=== PATIENT | female | born 1990 ===

== ENCOUNTER 2017-02-04 21:41 | Emergency (ER) | payer OTHER ==
[2017-02-04 21:42] VITALS: BMI 29.6
[2017-02-04 22:06] VITALS: TEMP 98.2
[2017-02-04] MEDS ORDERED: DiphenhydrAMINE 50 mg/ml Inj IVP STA (22:41)
[2017-02-04] MEDS ORDERED: Sodium Chloride 0.9% 1,000 ML IV ONE (22:42)
[2017-02-04] MEDS ORDERED: Sodium Chloride 0.9% 1,000 ML ONE (23:20)
[2017-02-04] MEDS ORDERED: DiphenhydrAMINE 50 mg/ml Inj ONE (23:20)
--- NOTE | 2017-02-05 00:12 | C.PDOC ---
History Of Present Illness 26 year old female presents the ER with a complaint of frequent headaches for 1 month associated with nausea, vomiting, and occasional blurry vision. Patient has been on fioricet and vistaril for "2 years". Patient states headaches are new, did not happen prior to 1 month ago. She denies fever, dizziness, facial droop, slurred speech, extremity weakness, sensory changes, slurred speech. Time Seen by Provider: 02/04/17 22:34 Chief Complaint (Nursing): Headache History Per: Patient History/Exam Limitations: no limitations Onset/Duration Of Symptoms: Days (1 month) Current Symptoms Are (Timing): Still Present Severity: Mild Associated Symptoms: Blurred Vision, Nausea, Vomiting. denies: Extremity Weakness Past Medical History Reviewed: Historical Data, Nursing Documentation, Vital Signs Vital Signs: Last Vital Signs Temp 98.2 F 02/05/17 00:44 Pulse 80 02/05/17 00:44 Resp 20 02/05/17 00:44 BP 122/80 02/05/17 00:44 Pulse Ox 98 02/05/17 00:44 - Medical History PMH: Bipolar Disorder, Depression - [facility] Procedures EXTRACTION OF POC, LOW CERVICAL, OPEN APPROACH (12/11/15) INTRODUCTION OF SERUM/TOX/VACCINE INTO MUSCLE, PERC APPROACH (12/11/15) Family History: States: Diabetes - Social History Hx Tobacco Use: No Hx Alcohol Use: No Hx Substance Use: No - Immunization History Hx Tetanus Toxoid Vaccination: Yes Hx Influenza Vaccination: Yes Hx Pneumococcal Vaccination: No Review Of Systems Except As Marked, All Systems Reviewed And Found Negative. Constitutional: Negative for: Fever, Chills ENT: Positive for: Other (Blurry vision) Cardiovascular: Negative for: Chest Pain, Palpitations Respiratory: Negative for: Cough, Shortness of Breath Gastrointestinal: Positive for: Nausea, Vomiting. Negative for: Abdominal Pain , Diarrhea Genitourinary: Negative for: Dysuria, Hematuria Neurological: Positive for: Headache. Negative for: Weakness, Numbness, Change in Speech, Altered Mental Status, Dizziness Physical Exam - Physical Exam Appears: Non-toxic, Other (in mild pain) Skin: Normal Color, Warm, Dry Head: Atraumatic, Normacephalic Eye(s): bilateral: Normal Inspection, PERRL, EOMI Oral Mucosa: Moist Neck: Normal, Normal ROM Chest: Symmetrical Cardiovascular: Rhythm Regular Respiratory: Normal Breath Sounds, No Rales, No Rhonchi, No Wheezing Gastrointestinal/Abdominal: Normal Exam, Bowel Sounds, Soft, No Tenderness Neurological/Psych: Oriented x3, Normal Speech, Normal Cognition, Normal Cranial Nerves, No Cerebellar Signs, Normal Motor, Normal Sensation, Normal Reflexes Gait: Steady ED Course And Treatment O2 Sat by Pulse Oximetry: 97 (Room air) Pulse Ox Interpretation: Normal Progress Note: CT head and [facility] POC ordered and reviewed. Patient given IV NS bolus, IV reglan, IV Benadryl. Reevaluation Time: 00:15 Reassessment Condition: Improved (Patient reassessed, is resting comfortably, has no current headache, nausea/dizziness, visual changes. Patient's CT head (- ) for acute findings. She was given Rxs for Fiorecet and Zofran ODT, and instructed to follow up with neurology within 1 week. She understands she should return to ED if symptoms worsen.) Disposition Counseled Patient/Family Regarding: Studies Performed, Diagnosis, Need For Followup, Rx Given - Disposition Referrals: Dirk Covarrubias MD [Staff Provider] - Disposition: HOME/ ROUTINE Disposition Time: 00:15 Condition: STABLE Additional Instructions: SEGUIMIENTO CON NEURLOGO DENTRO DE 1 SEMANA SI LOS SNTOMAS PERSISTAN USE LOS MEDICAMENTOS QUE RENETTA NECESARIOS DEVUELVA A LA SELAM DE EMERGENCIA SI LOS SNTOMAS SE EMPEORARAN Prescriptions: Acetaminophen/Butalbital/Caf [Fioricet] 1 tab PO TID PRN #20 tab PRN Reason: Headache Ondansetron [Zofran Odt] 4 mg PO Q8 PRN #10 odt PRN Reason: Nausea/Vomiting Instructions: Acute Headache (ED) Print Language: LAO - POA Present On Arrival: None - Clinical Impression Clinical Impression: Headache, Nausea - Scribe Statement The provider has reviewed the documentation as recorded by the Scribliseth Ruffin All medical record entries made by the Scribe were at my direction and personally dictated by me. I have reviewed the chart and agree that the record accurately reflects my personal performance of the history, physical exam, medical decision making, and the department course for this patient. I have also personally directed, reviewed, and agree with the discharge instructions and disposition.
[2017-02-05 00:45] VITALS: BP 122/80; PULSE 80; RESP 20
--- NOTE | 2017-02-05 08:35 | CT ---
PROCEDURE: CT HEAD WITHOUT CONTRAST. HISTORY: NEW ONSET HEADACHES, NAUSEA/VOMITING X 1 MONTH COMPARISON: 06/30/2014 TECHNIQUE: Axial computed tomography images were obtained through the head/brain without intravenous contrast. Radiation dose: Total exam DLP = 819 mGy-cm. This CT exam was performed using one or more of the following dose reduction techniques: Automated exposure control, adjustment of the mA and/or kV according to patient size, and/or use of iterative reconstruction technique. FINDINGS: HEMORRHAGE: No intracranial hemorrhage. BRAIN: No mass effect or edema. No atrophy or chronic microvascular ischemic changes. VENTRICLES: Unremarkable. No hydrocephalus. CALVARIUM: Unremarkable. PARANASAL SINUSES: Unremarkable as visualized. No significant inflammatory changes. MASTOID AIR CELLS: Unremarkable as visualized. No inflammatory changes. OTHER FINDINGS: None. IMPRESSION: No acute intracranial abnormality. If focal neurologic deficit persists, consider MRI. These findings were preliminarily reported at 12:04 a.m. on 02/05/[address] Ezequiel Velazquez from [facility].
[2017-02-13 16:33] VITALS: O2SAT 97
== END 2017-02-05 00:43 | disposition home or self-care (01) ==
LOC: C.ER 21:41
DX: R51 Headache (principal); R11.0 Nausea
CPT/HCPCS: 70450; 96361; 96374; 96375; 99284; J1200; J2765; J7040

== ENCOUNTER 2018-07-27 18:02 | Emergency (ER) | payer MEDICAID ==
[2018-07-27 18:21] VITALS: BMI 24.1
[2018-07-27 18:24] VITALS: BP 111/77; PULSE 74; RESP 18; TEMP 99.2; O2SAT 100
[2018-07-27] MEDS ORDERED: Sodium Chloride 0.9% 1,000 ML IV STA (19:20)
[2018-07-27 20:00] LABS: BASO % 0.3 % (0.0-2.0); EOS % 0.2 % (0.0-4.0); LYMPH # 2.5 K/uL (1.0-4.3); LYMPH % 23.7 % (20.0-40.0); MEAN CELL VOLUME 77.9 fL (81.0-99.0); MEAN CORPUSCULAR HGB CONC 32.2 g/dL (33.0-37.0); MEAN PLATELET VOLUME 8.1 fL (7.2-11.7); MONO # 0.9 K/uL (0.0-0.8); MONO % 8.2 % (0.0-10.0); NEUT # 7.1 K/uL (1.8-7.0); NEUT % 67.6 % (50.0-75.0); RBC 4.77 Mil/uL (3.80-5.20); RED CELL DISTRIBUTION WIDTH 17.6 % (11.5-14.5); WHITE BLOOD COUNT 10.5 K/uL (4.8-10.8)
[2018-07-27] MEDS ORDERED: Sodium Chloride 0.9% 1,000 ML ONE (20:00)
--- NOTE | 2018-07-27 20:06 | C.PDOC ---
History Of Present Illness 27 year old female presents to the ED complaining of generalized body aches, subjective fever, chills, and midsternal chest pain x 10 days. She denies any cough, SOB, abdominal pain, n/v/d, or urinary symptoms. Patient reports she fe els "hot" and chest wall is tender to palpation. Denies any recent travels or sick contacts. Time Seen by Provider: 07/27/18 18:53 Chief Complaint (Nursing): Flu-like Symptoms History Per: Patient History/Exam Limitations: no limitations Onset/Duration Of Symptoms: Days Current Symptoms Are (Timing): Still Present Location Of Pain: Diffuse Myalgias Associated Symptoms: Fever, Chills, Myalgias. denies: Cough, Vomiting, Diarrhea Past Medical History Reviewed: Historical Data, Nursing Documentation, Vital Signs Vital Signs: Last Vital Signs Temp 99.2 F 07/27/18 18:21 Pulse 74 07/27/18 18:21 Resp 18 07/27/18 18:21 BP 111/77 07/27/18 18:21 Pulse Ox 100 07/27/18 18:21 - Medical History PMH: Bipolar Disorder, Depression Denies: Diabetes, Hepatitis, HIV, HTN, Kidney Stones, Chronic Kidney Disease, Seizures, Sexually Transmitted Disease Other Surgeries: hx of surgeries - [facility] Procedures EXTRACTION OF POC, LOW CERVICAL, OPEN APPROACH (12/11/15) INTRODUCTION OF SERUM/TOX/VACCINE INTO MUSCLE, PERC APPROACH (12/11/15) Family History: States: Diabetes - Social History Hx Tobacco Use: No Hx Alcohol Use: No Hx Substance Use: No - Immunization History Hx Tetanus Toxoid Vaccination: Yes Hx Influenza Vaccination: Yes Hx Pneumococcal Vaccination: No Review Of Systems Except As Marked, All Systems Reviewed And Found Negative. Constitutional: Positive for: Fever, Chills, Other (myalgias) Cardiovascular: Positive for: Chest Pain Respiratory: Negative for: Cough, Shortness of Breath Gastrointestinal: Negative for: Nausea, Vomiting, Diarrhea Genitourinary: Negative for: Dysuria, Hematuria Physical Exam - Physical Exam Appears: Non-toxic Skin: Warm, Dry, No Rash Head: Normacephalic Eye(s): bilateral: Normal Inspection Ear(s): Bilateral: Normal Nose: Normal Oral Mucosa: Moist Throat: Normal Neck: Normal ROM Chest: Symmetrical, Tenderness (anterior chest), No Other (rash, erythema) Cardiovascular: Rhythm Regular Respiratory: Normal Breath Sounds, No Rales, No Rhonchi, No Wheezing Gastrointestinal/Abdominal: Soft, No Tenderness Extremity: Normal ROM Neurological/Psych: Oriented x3, Normal Speech Gait: Steady ED Course And Treatment - Laboratory Results Result Diagrams: 07/27/18 19:54 07/27/18 19:54 ECG: Interpreted By Me, Viewed By Me ECG Rhythm: Sinus Rhythm ECG Interpretation: No Acute Changes Rate From EC O2 Sat by Pulse Oximetry: 100 (RA) Pulse Ox Interpretation: Normal - Radiology CXR: Interpreted by Me CXR Interpretation: Yes: No Acute Disease Progress Note: CXR ordered. Patient treated with Toradol and given IV fluids. Urine and blood collected and sent to the lab for analysis. Urinalysis shows blood, but patient sts she has her menstrual period now. Blood work without significant abnormalities. Patient was given copies of her labs and she was instructed to f/u with her PMD within 1-2 days. Disposition - Disposition Referrals: Shaik Orozco MD [Staff Provider] - Disposition: HOME/ ROUTINE Disposition Time: 21:41 Condition: STABLE Additional Instructions: Follow up with PMD within 1-2 days. Return to ED if feel worse. Prescriptions: Ibuprofen [Motrin Tab] 600 mg PO Q8 #30 tab Instructions: Muscle and Bone Pain (DC) Forms: [facility] (Cuban), Work Excuse Print Language: ROMANIAN - Clinical Impression Clinical Impression: Myalgia - PA / EMERGENCY DEPARTMENT TECHNICIAN / Resident Statement MD/DO has reviewed & agrees with the documentation as recorded. - Scribe Statement The provider has reviewed the documentation as recorded by the Scribe Cristine Cheng All medical record entries made by the Scribe were at my direction and personally dictated by me. I have reviewed the chart and agree that the record accurately reflects my personal performance of the history, physical exam, medical decision making, and the department course for this patient. I have also personally directed, reviewed, and agree with the discharge instructions and disposition.
[2018-07-27 20:09] LABS: SQUAMOUS EPITHIAL 3 /hpf (0-5); URINE BACTERIA OCC (<OCC); URINE BILIRUBIN NEGATIVE (NEGATIVE); URINE BLOOD 3+ (NEGATIVE); URINE CLARITY Hazy (Clear); URINE COLOR Amber (YELLOW); URINE GLUCOSE (UA) NORMAL (Normal); URINE LEUKOCYTE ESTERASE TRACE Leu/uL (Negative); URINE PROTEIN 2+ mg/dL (NEGATIVE)
[2018-07-27 20:15] LABS: ALB/GLOB RATIO 1.6 (1.0-2.1); ALBUMIN 4.6 g/dL (3.5-5.0); ALT/SGPT 18 U/L (9-52); AST/SGOT 21 U/L (14-36); BLOOD UREA NITROGEN 5 mg/dL (7-17); CALCIUM 9.2 mg/dl (8.6-10.4); GFR NON-AFRICAN AMERICAN > 60
--- NOTE | 2018-07-28 09:13 | RAD ---
Date of service: 07/27/2018 HISTORY: fever, chest discomfort COMPARISON: No prior. TECHNIQUE: Chest PA and lateral FINDINGS: LUNGS: No active pulmonary disease. PLEURA: No significant pleural effusion identified. No pneumothorax apparent. CARDIOVASCULAR: Normal. OSSEOUS STRUCTURES: Limited dextroscoliotic deformity of the thoracolumbar spine (C-shaped). VISUALIZED UPPER ABDOMEN: Normal. OTHER FINDINGS: None. IMPRESSION: No acute cardiopulmonary disease appreciated.
--- NOTE | 2018-07-29 12:34 | CARD ---
APPROVED REPORT Date of service: 07/27/2018 EKG Measurement Heart [id number] <Conclusion> Normal sinus rhythm Normal ECG
== END 2018-07-27 22:04 | disposition home or self-care (01) ==
LOC: C.ER 18:02
DX: M79.10 Myalgia, unspecified site (principal)
CPT/HCPCS: 71046; 80053; 81001; 85025; 93005; 96361; 96374; 99283; J1885; J7030

== ENCOUNTER 2018-11-02 05:40 | Inpatient (IN) | payer MEDICAID | END 2018-11-09 17:20 | disposition home or self-care (01) | LOC: C.5E 11-04 08:56 → C.ER 05:40 → C.9E 09:28 → C.6T 14:43 ==

== ENCOUNTER 2018-12-06 10:44 | Emergency (ER) | payer MEDICAID ==
[2018-12-06 10:45] VITALS: BMI 24.1
[2018-12-06 10:57] VITALS: RESP 18; O2SAT 100
[2018-12-06] MEDS ORDERED: Sodium Chloride 0.9% 1,000 ML IV ONE (11:37)
--- NOTE | 2018-12-06 11:37 | C.PDOC ---
History Of Present Illness 28 years old female presents to ED for complaints of bilateral lower quadrant abdominal pain associated with vomiting that began 1 week ago. Denies fever and diarrhea. Patient has past surgical history of . BL LQ PAIN, VOMITING X 1 WEEK. NO FEVER, DIARRHEA. PSH CSECT EXAM BL LQ MIN TEND SOFT NO R/G REMAINDER NEG Time Seen by Provider: 12/06/18 11:01 Chief Complaint (Nursing): Abdominal Pain History Per: Patient History/Exam Limitations: no limitations Onset/Duration Of Symptoms: Days (7) Current Symptoms Are (Timing): Still Present Location Of Pain/Discomfort: RLQ, LLQ Radiation Of Pain To:: None Associated Symptoms: Nausea, Vomiting. denies: Fever, Diarrhea Exacerbating Factors: None Alleviating Factors: None Last Bowel Movement: Today Recent travel outside of the [place]: No Abnormal Vaginal Bleeding: No Past Medical History Reviewed: Historical Data, Nursing Documentation, Vital Signs Vital Signs: Last Vital Signs Temp 98.3 F 12/06/18 10:55 Pulse 80 12/06/18 10:55 Resp 18 12/06/18 10:55 BP 132/92 H 12/06/18 10:55 Pulse Ox 100 12/06/18 10:55 - Medical History PMH: Bipolar Disorder, Depression - [facility] Procedures EXTRACTION OF POC, LOW CERVICAL, OPEN APPROACH (12/11/15) INDIV PSYCHOTHERAPY FOR SUBSTANCE ABUSE TREATMENT, SUPPORT (11/04/18) INDIV PSYCHOTHERAPY FOR SUBSTANCE ABUSE, COGNITIV BEHAVIORAL (11/04/18) INDIV PSYCHOTHERAPY FOR SUBSTANCE ABUSE, PSYCHOEDUCATION (11/04/18) INTRODUCTION OF SERUM/TOX/VACCINE INTO MUSCLE, PERC APPROACH (12/11/15) Family History: States: Diabetes - Social History Hx Tobacco Use: No Hx Alcohol Use: No Hx Substance Use: No - Immunization History Hx Tetanus Toxoid Vaccination: Yes Hx Influenza Vaccination: Yes Hx Pneumococcal Vaccination: No Review Of Systems Except As Marked, All Systems Reviewed And Found Negative. Constitutional: Negative for: Fever, Chills Gastrointestinal: Positive for: Nausea, Vomiting, Abdominal Pain (Bilateral lower quadrant ). Negative for: Diarrhea Skin: Negative for: Rash Neurological: Negative for: Weakness, Numbness Physical Exam - Physical Exam Appears: Non-toxic, No Acute Distress Skin: Normal Color, Warm, Dry, No Rash Head: Atraumatic, Normacephalic Eye(s): bilateral: Normal Inspection, PERRL, EOMI Oral Mucosa: Moist Neck: Normal ROM, Supple Chest: Symmetrical, No Tenderness Cardiovascular: Rhythm Regular, No Murmur Respiratory: Normal Breath Sounds, No Rales, No Rhonchi, No Wheezing, Other (NARD) Gastrointestinal/Abdominal: Bowel Sounds (Active ), Soft, Tenderness (Bilateral lower quadrant minimal ), No Distention Extremity: Normal ROM Extremity: Bilateral: Atraumatic, Normal Color And Temperature, Normal ROM Pulses: Left Radial: Normal, Right Radial: Normal Neurological/Psych: Oriented x3, Normal Speech Gait: Steady ED Course And Treatment - Laboratory Results Result Diagrams: 12/06/18 12:20 12/06/18 12:20 O2 Sat by Pulse Oximetry: 100 (RA) Pulse Ox Interpretation: Normal - CT Scan/US Abdomen/Pelvis CT Other Rad Studies (CT/US): Read By Radiologist, Radiology Report Reviewed CT/US Interpretation: Date of service: 12/06/2018. PROCEDURE: CT Abdomen and Pelvis with contrast. HISTORY: abd pain BL LQ, VOMITING. COMPARISON: None. TECHNIQUE: Following the intravenous administration of iodinated contrast material, a CT examination of the abdomen and pelvis was performed from the domes of the diaphragms to the symphysis pubis with reformatted datasets provided in axial, sagittal and coronal planes. Oral contrast was not administered as per referring physician request. Contrast dose: Omnipaque 300, 100 cc. Radiation dose: Total exam DLP = 411.84 mGy-cm. This CT exam was performed using one or more of the following dose reduction techniques: Automated exposure control, adjustment of the mA and/or kV according to patient size, and/or use of iterative reconstruction technique. FINDINGS: LOWER THORAX: Unremarkable. LIVER: Unremarkable. No gross lesion or ductal dilatation. GALLBLADDER AND BILE DUCTS: Unremarkable. PANCREAS: Unremarkable. No gross lesion or ductal dilatation. SPLEEN: Unremarkable. ADRENALS: Unremarkable. No mass. KIDNEYS AND URETERS: Unremarkable. No hydronephrosis. No solid mass. VASCULATURE: Unremarkable. No aortic aneurysm. No aortic atherosclerotic calcification or mural plaque present. BOWEL: Moderate fecal loading throughout the majority of colon sparing the distal segment. No gross mural thickening. Stomach is collapsed and poorly evaluated. No bowel obstruction, pericolic or perienteric reaction appreciated. APPENDIX: Normal appendix. PERITONEUM: Tiny umbilical hernia contains only perineal fat. No free fluid. No free air. LYMPH NODES: Unremarkable. No enlarged lymph nodes. BLADDER: Unremarkable. REPRODUCTIVE: 2.5 cm right adnexal cyst with the left adnexal compartment unremarkable appearing. BONES: No acute fracture. OTHER FINDINGS: None. IMPRESSION: A 2.5 cm right adnexal cyst identified. No definite additional potential acute abdominal or pelvic findings. No CT evidence of appendicitis. Progress - Re-Evaluation Re-evaluation Note: 12/06/18 14:44 APPEARS COMFORTABLE NAD NO S/S ACUTE ABD - Data Reviewed Data Reviewed: Lab, Diagnostic imaging, Old records Medical Decision Making Medical Decision Making: Plan: * IV Fluids * Toradol * Zofran * Blood work * CT Abdomen/Pelvis * Urinalysis Disposition Counseled Patient/Family Regarding: Studies Performed, Diagnosis, Need For Followup, Rx Given - Disposition Referrals: YOUR,PMD [Other] Disposition: HOME/ ROUTINE Disposition Time: 14:44 Condition: GOOD Prescriptions: Magnesium Citrate [[facility] Magnesium Citrate] 300 ml PO ONCE #1 bottle Instructions: Constipation, Adult (DC), Acute Abdomen (Belly Pain), Adult (DC) Forms: [facility] [employer] (Hebrew) Print Language: BRUNEIAN - Clinical Impression Clinical Impression: Abdominal pain, Constipation - Scribe Statement The provider has reviewed the documentation as recorded by the Meagan Johnson All medical record entries made by the Mishaibliseth were at my direction and personally dictated by me. I have reviewed the chart and agree that the record accurately reflects my personal performance of the history, physical exam, medical decision making, and the department course for this patient. I have also personally directed, reviewed, and agree with the discharge instructions and disposition.
[2018-12-06 11:59] LABS: SQUAMOUS EPITHIAL 1 /hpf (0-5); URINE BILIRUBIN NEGATIVE (NEGATIVE); URINE BLOOD 3+ (NEGATIVE); URINE CLARITY Clear (Clear); URINE COLOR Straw (YELLOW); URINE GLUCOSE (UA) NORMAL (Normal); URINE LEUKOCYTE ESTERASE NEG Leu/uL (Negative); URINE PROTEIN NEGATIVE (NEGATIVE); URINE UROBILINOGEN NORMAL mg/dL (0.2-1.0)
[2018-12-06] MEDS ORDERED: Sodium Chloride 0.9% 1,000 ML ONE (12:10)
[2018-12-06] MEDS ORDERED: Iohexol 300 100 ML IJ ONE (12:11)
[2018-12-06 12:27] LABS: HEMOGLOBIN 10.5 g/dL (11.0-16.0); MEAN PLATELET VOLUME 8.1 fL (7.2-11.7); MONO # 0.4 K/uL (0.0-0.8); RED CELL DISTRIBUTION WIDTH 16.2 % (11.5-14.5)
[2018-12-06 12:31] LABS: BASO % 0.5 % (0.0-2.0); EOS % 0.3 % (0.0-4.0); LYMPH # 1.9 K/uL (1.0-4.3); LYMPH % 23.3 % (20.0-40.0); MEAN CORPUSCULAR HEMOGLOBIN 23.6 pg (27.0-31.0); MEAN CORPUSCULAR HGB CONC 31.5 g/dL (33.0-37.0); MONO % 5.2 % (0.0-10.0); NEUT # 5.6 K/uL (1.8-7.0); NEUT % 70.7 % (50.0-75.0); RBC 4.44 Mil/uL (3.80-5.20)
[2018-12-06 12:38] LABS: MEAN CELL VOLUME 74.9 fL (81.0-99.0)
[2018-12-06 12:45] LABS: ALB/GLOB RATIO 1.5 (1.0-2.1); ALBUMIN 4.4 g/dL (3.5-5.0); ALT/SGPT 20 U/L (9-52); AST/SGOT 27 U/L (14-36); BLOOD UREA NITROGEN 10 mg/dL (7-17); CALCIUM 9.3 mg/dl (8.6-10.4); GFR NON-AFRICAN AMERICAN > 60; LIPASE 107 U/L (23-300)
--- NOTE | 2018-12-06 14:20 | CT ---
Date of service: 12/06/2018 PROCEDURE: CT Abdomen and Pelvis with contrast HISTORY: abd pain BL LQ, VOMITING COMPARISON: None. TECHNIQUE: Following the intravenous administration of iodinated contrast material, a CT examination of the abdomen and pelvis was performed from the domes of the diaphragms to the symphysis pubis with reformatted datasets provided in axial, sagittal and coronal planes. Oral contrast was not administered as per referring physician request. Contrast dose: Omnipaque 300, 100 cc Radiation dose: Total exam DLP = 411.84 mGy-cm. This CT exam was performed using one or more of the following dose reduction techniques: Automated exposure control, adjustment of the mA and/or kV according to patient size, and/or use of iterative reconstruction technique. FINDINGS: LOWER THORAX: Unremarkable. LIVER: Unremarkable. No gross lesion or ductal dilatation. GALLBLADDER AND BILE DUCTS: Unremarkable. PANCREAS: Unremarkable. No gross lesion or ductal dilatation. SPLEEN: Unremarkable. ADRENALS: Unremarkable. No mass. KIDNEYS AND URETERS: Unremarkable. No hydronephrosis. No solid mass. VASCULATURE: Unremarkable. No aortic aneurysm. No aortic atherosclerotic calcification or mural plaque present. BOWEL: Moderate fecal loading throughout the majority of colon sparing the distal segment. No gross mural thickening. Stomach is collapsed and poorly evaluated. No bowel obstruction, pericolic or perienteric reaction appreciated. APPENDIX: Normal appendix. PERITONEUM: Tiny umbilical hernia contains only perineal fat. No free fluid. No free air. LYMPH NODES: Unremarkable. No enlarged lymph nodes. BLADDER: Unremarkable. REPRODUCTIVE: 2.5 cm right adnexal cyst with the left adnexal compartment unremarkable appearing. BONES: No acute fracture. OTHER FINDINGS: None. IMPRESSION: A 2.5 cm right adnexal cyst identified. No definite additional potential acute abdominal or pelvic findings. No CT evidence of appendicitis.
[2018-12-06 14:36] VITALS: BP 112/72; PULSE 71; TEMP 98.5
== END 2018-12-06 15:07 | disposition home or self-care (01) ==
LOC: C.ER 10:44
DX: R10.31 Right lower quadrant pain (principal); R10.32 Left lower quadrant pain; K59.00 Constipation, unspecified
CPT/HCPCS: 74177; 80053; 81001; 81025; 83690; 85025; 96374; 96375; 99285; J1885; J2405; J7030; Q9967

== ENCOUNTER 2018-12-15 02:24 | Inpatient (IN) | payer MEDICAID ==
[2018-12-15 02:24] VITALS: BMI 24.1
[2018-12-15 03:22] LABS: SQUAMOUS EPITHIAL 3 /hpf (0-5); URINE BILIRUBIN NEGATIVE (NEGATIVE); URINE BLOOD NEGATIVE (NEGATIVE); URINE CLARITY Hazy (Clear); URINE COLOR Yellow (YELLOW); URINE GLUCOSE (UA) NORMAL (Normal); URINE LEUKOCYTE ESTERASE NEG Leu/uL (Negative); URINE PROTEIN NEGATIVE (NEGATIVE); URINE UROBILINOGEN NORMAL mg/dL (0.2-1.0)
[2018-12-15 03:24] LABS: BASO # 0.1 K/uL (0.0-0.2); BASO % 0.6 % (0.0-2.0); EOS % 0.2 % (0.0-4.0); LYMPH # 2.1 K/uL (1.0-4.3); MONO # 0.7 K/uL (0.0-0.8); WHITE BLOOD COUNT 11.9 K/uL (4.8-10.8)
[2018-12-15 03:34] LABS: ALB/GLOB RATIO 1.5 (1.0-2.1); ALBUMIN 4.6 g/dL (3.5-5.0); ALT/SGPT 23 U/L (9-52); AST/SGOT 30 U/L (14-36); BLOOD UREA NITROGEN 8 mg/dL (7-17); CALCIUM 9.3 mg/dl (8.6-10.4); GFR NON-AFRICAN AMERICAN > 60; HCG,QUALITATIVE URINE NEGATIVE (NEGATIVE)
[2018-12-15 03:39] LABS: BARBITURATES, UR NEGATIVE (NEGATIVE); BENZODIAZEPINES, UR NEGATIVE (NEGATIVE); OPIATES, UR NEGATIVE (NEGATIVE); PHENCYCLIDINE, UR NEGATIVE (NEGATIVE)
[2018-12-15 03:49] LABS: MEAN CELL VOLUME 74.2 fL (81.0-99.0); MEAN CORPUSCULAR HEMOGLOBIN 22.8 pg (27.0-31.0); MEAN CORPUSCULAR HGB CONC 30.7 g/dL (33.0-37.0); MONO % 5.7 % (0.0-10.0); NEUT % 75.5 % (50.0-75.0); RBC 4.4 Mil/uL (3.80-5.20); RED CELL DISTRIBUTION WIDTH 16.2 % (11.5-14.5)
--- NOTE | 2018-12-15 05:14 | C.PDOC ---
History Of Present Illness 28 year old female with Hx of bipolar disorder and depression presents for suicidal ideation. Patient states she feels like jumping in front of a train. She reports she has been complaint with her medications, feels very anxious req uesting evaluation. Denies other complaints at this time. Time Seen by Provider: 12/15/18 02:58 Chief Complaint (Nursing): Psychiatric Evaluation History Per: Patient History/Exam Limitations: no limitations Onset/Duration Of Symptoms: Hrs Current Symptoms Are (Timing): Still Present Associated Symptoms: Suicidal Thoughts, Suicidal Plan Involuntary Hold By: None Recent travel outside of the [place]: No Past Medical History Reviewed: Historical Data, Nursing Documentation, Vital Signs Vital Signs: Last Vital Signs Temp 98.9 F 12/15/18 02:54 Pulse 80 12/15/18 04:36 Resp 14 12/15/18 04:36 BP 124/84 12/15/18 04:36 Pulse Ox 98 12/15/18 04:36 - Medical History PMH: Bipolar Disorder, Depression Denies: Diabetes, Hepatitis, HIV, HTN, Kidney Stones, Chronic Kidney Disease, Seizures, Sexually Transmitted Disease - [facility] Procedures EXTRACTION OF POC, LOW CERVICAL, OPEN APPROACH (12/11/15) INDIV PSYCHOTHERAPY FOR SUBSTANCE ABUSE TREATMENT, SUPPORT (11/04/18) INDIV PSYCHOTHERAPY FOR SUBSTANCE ABUSE, COGNITIV BEHAVIORAL (11/04/18) INDIV PSYCHOTHERAPY FOR SUBSTANCE ABUSE, PSYCHOEDUCATION (11/04/18) INTRODUCTION OF SERUM/TOX/VACCINE INTO MUSCLE, PERC APPROACH (12/11/15) Family History: States: Diabetes - Social History Hx Tobacco Use: No Hx Alcohol Use: No Hx Substance Use: No - Immunization History Hx Tetanus Toxoid Vaccination: Yes Hx Influenza Vaccination: Yes Hx Pneumococcal Vaccination: No Review Of Systems Constitutional: Negative for: Fever, Chills Cardiovascular: Negative for: Chest Pain, Palpitations Respiratory: Negative for: Cough, Shortness of Breath Gastrointestinal: Negative for: Nausea, Vomiting Psych: Positive for: Suicidal ideation Physical Exam - Physical Exam Appears: Non-toxic Skin: Normal Color, Warm, Dry Head: Atraumatic, Normacephalic Eye(s): bilateral: Normal Inspection Oral Mucosa: Moist Chest: Symmetrical, No Tenderness Cardiovascular: Rhythm Regular Respiratory: Normal Breath Sounds, No Rales, No Rhonchi, No Wheezing Gastrointestinal/Abdominal: Soft, No Tenderness Neurological/Psych: Oriented x3, Normal Speech, Other (anxious, talking to self) ED Course And Treatment - Laboratory Results Result Diagrams: 12/15/18 03:18 12/15/18 03:18 Lab Results: Total Bilirubin 0.3 mg/dL (0.2-1.3) 12/15/18 03:18 AST 30 U/L (14-36) 12/15/18 03:18 ALT 23 U/L (9-52) 12/15/18 03:18 Alkaline Phosphatase 78 U/L (38-126) 12/15/18 03:18 Total Protein 7.7 g/dL (6.3-8.3) 12/15/18 03:18 Albumin 4.6 g/dL (3.5-5.0) 12/15/18 03:18 Globulin 3.1 gm/dL (2.2-3.9) 12/15/18 03:18 Albumin/Globulin Ratio 1.5 (1.0-2.1) 12/15/18 03:18 Urine Color Yellow (YELLOW) 12/15/18 03:18 Urine Clarity Hazy (Clear) 12/15/18 03:18 Urine pH 6.0 (5.0-8.0) 12/15/18 03:18 Ur Specific [place] 1.009 (1.003-1.030) 12/15/18 03:18 Urine Protein Negative mg/dL (NEGATIVE) 12/15/18 03:18 Urine Glucose (UA) Normal mg/dL (Normal) 12/15/18 03:18 Urine Ketones Trace mg/dL (NEGATIVE) 12/15/18 03:18 Urine Blood Negative (NEGATIVE) 12/15/18 03:18 Urine Nitrate Negative (NEGATIVE) 12/15/18 03:18 Urine Bilirubin Negative (NEGATIVE) 12/15/18 03:18 Urine Urobilinogen Normal mg/dL (0.2-1.0) 12/15/18 03:18 Ur Leukocyte Esterase Neg [place]/uL (Negative) 12/15/18 03:18 Urine WBC (Auto) 1 /hpf (0-5) 12/15/18 03:18 Urine RBC (Auto) < 1 /hpf (0-3) 12/15/18 03:18 Ur Squamous Epith Cells 3 /hpf (0-5) 12/15/18 03:18 Urine HCG, Qual Negative (NEGATIVE) 12/15/18 03:18 Urine HCG, Qual Negative (NEGATIVE) 12/15/18 03:18 O2 Sat by Pulse Oximetry: 98 (Room air) Pulse Ox Interpretation: Normal Progress Note: Blood work and urinalysis ordered, patient medically cleared. Crisis notifed. Patient is also requesting x-ray, states she was told she was retaining stool in last CT and would like an x-ray to follow up, denies abdominal pain or constipation at this time. Patient accepted by Dr. Parikh for psych admission. Disposition Counseled Patient/Family Regarding: Diagnosis, Need For Followup - Disposition Disposition: HOSPITALIZED Disposition Time: 04:20 Condition: STABLE - Clinical Impression Clinical Impression: Manic bipolar I disorder - PA / HANDBELL CHOIR DIRECTOR / Resident Statement MD/DO has reviewed & agrees with the documentation as recorded. - Scribe Statement The provider has reviewed the documentation as recorded by the Scribe Will Ruffin All medical record entries made by the Scribe were at my direction and personally dictated by me. I have reviewed the chart and agree that the record accurately reflects my personal performance of the history, physical exam, medical decision making, and the department course for this patient. I have also personally directed, reviewed, and agree with the discharge instructions and disposition.
--- NOTE | 2018-12-15 05:46 | PCM.BM ---
<Boo Hopson Pat - Last Filed: 12/15/18 05:44> Treatment Plan Problems - Problems identified on initial assessmt Altered Thought Process Date Initiated: 12/15/18 Time Initiated: 04:45 Assessment reference: NA Status: Active High Risk: Injury Date Initiated: 12/15/18 Time Initiated: 04:45 Assessment reference: NA Status: Monitor Treatment assets and liabiliti Patient Assests: educated, self-reliant, ADL independent, negotiates basic needs, cognitively intact Patient Liabilities: relationship conflicts - Milieu Protocol Maintain good personal hygiene: daily Encourage regular showers, daily Remind patient to perform daily oral care, daily Assist patient to perform ADL's Conduct patient checks and document Observation sheet: Q15 minutes Maintain personal safety: every shift Educate patient to report safety concerns to staff, every shift Monitor environment for contraband/sharps Medication safety: Monitor for expected outcome, potential side effects: every shift, Assess barriers to learning: every shift, Assess readiness for medication education: every shift <Darcie Dupont - Last Filed: 12/16/18 10:49> - Diagnosis (1) Bipolar 1 disorder Status: Acute Interventions: 12/16/18 10:49 * Assess/adjust medications daily and /or as needed * See patient on an individual basis 7x/week to assess level of manic behaviors and stability * Discuss risks, benefits, side effects and alternatives of medications * <Brisa Aaron - Last Filed: 12/16/18 11:34> Family Contact Family involvement: Family/SO is involved Family contact: Patient declines to allow family contact at present - Goals for Treatment Patient goals for treatment: "I want to go home." Discharge/Continuing Care - Education Needs Education Needs: Patient Medication, Patient Coping Skills - Discharge Discharge Criteria: Tolerates medication w/o severe side effects, Reduction of target symptoms Discharge to:: Home, With Family - Treatment Team Participation Discussed with Family/SO: No Was Patient/Family/SO present at Treatment Team Meeting: Yes
--- NOTE | 2018-12-15 09:56 | PCM.PSYCH ---
Initial Psychiatric Evaluation - Initial Psychiatric Evaluation Type of Admission: Voluntary Legal Status: Capacity Chief Complaint (in patient's own words): I was feeling depressed and suicidal.' History of Present Illness and Precipitating Events: Patient is a 28-year-old female that is single, on disability benefits, currently living with her mother, cousin, and two children, who came in for depression with suicidal ideation and plan to jump in front of a train. Patient appeared very disorganized and internally preoccupied. She remained bizarre, paranoid and psychotic. Patient states that she got in a fight with her family members last night and left the house because she was upset. Patient states that an extended family member has been staying in her house and occupying a room which has been causing tension among all those that live there regularly. When she left the house, she was crying in the street and decided to just get as far away as possible. She reports that she wanted to kill herself by jumping in front of a train but knew better and knew she needed help. She eventually walked into the [facility] ED in emotional distress. Patient has a history of depression and bipolar disorder and takes Seroquel and Depakote. She has a history of a prior suicide attempt when she overdosed on 60 pills of Depakote last month and was seen here. Patient remained disheveled and unkempt. She reports racing thoughts, irri tability, agitation and poor concentration. She also reports at times depressed mood feelings of hopelessness and helplessness. She reports poor sleep and poor appetite. She reports paranoia but denies any auditory or visual hallucinations. She denies any drinking or any substance abuse. Past psychiatric history: bipolar, previous suicide attempt last month, sees a psychiatrist and therapist regularly at [facility] Family Psych History: Patient states that her father had similar psychiatric condition but is unsure if it was the same exact disorder. PMHx: gastritis, ovarian cyst Current Medications: Active Medications Generic Name Dose Route Start Last Admin Trade Name Freq PRN Reason Stop Dose Admin Influenza Virus Vaccine 60 mcg 12/17/18 10:00 Flucelvax Quad 9134-7907 Syr IM 12/17/18 10:01 .ONCE ONE Pneumococcal Polyvalent Vaccine 0.5 ml 12/17/18 10:30 Pneumovax 23 Vaccine IM 12/17/18 10:31 .ONCE ONE Past Psychiatric History - Past Psychiatric History Previous Treatment History: Inpatient Pertinent Medical Hx (Current Medical&Sleep Prob, Allergies): Allergies Allergy/AdvReac Type Severity Reaction Status Date / Time No Known Allergies Allergy Verified 12/15/18 03:03 Ziprasidone [Geodon] 20 mg PO DAILY 07/27/18 Citalopram [celeXA] 10 mg PO DAILY 11/02/18 Divalproex Sodium 500 mg PO BID 11/02/18 Hydroxyzine HCl 25 mg PO BID 11/02/18 Sertraline [Zoloft] 50 mg PO DAILY 11/02/18 Escitalopram [Lexapro] 10 mg PO DAILY #30 tab 11/09/18 Famotidine [Pepcid] 20 mg PO DAILY #30 tab 11/09/18 QUEtiapine [SEROquel] 200 mg PO HS #30 tab 11/09/18 Magnesium Citrate [[facility] Magnesium Citrate] 300 ml PO ONCE #1 bottle 12/06/18 Review of Systems - Review of Systems All systems: reviewed and no additional remarkable complaints except - Psychiatric Psychiatric: Anxiety, Irritability, Mood Swings, Suicidal Ideation Mental Status Examination - Personal Presentation Personal Presentation: Looks stated age - Affect Affect: Broad - Motor Activity Motor Activity: Psychomotor Agitation - Reliability in Providing Information Reliability in Providing Information: Poor, due to alteration in thoughts, Poor, due to altered mood - Speech Speech: Disorganized - Mood Mood: Anxious - Formal Thought Process Formal Thought Process: Delusions, Paranoia, Loosening of associations, Flight of ideas - Hallucinations/Delusions Delusions: Persecution - Obsessions/Compulsions Obsessions: No Compulsions: No - Cognitive Functions Orientation: Person, Place, Situation, Time Sensorium: Alert Attention/Concentration: Attentive Abstract Thinking: [place] Estimate of Intelligence: Below average Judgement: Imparied, as evidence by: Poor judgement, Imparied, as evidence by: Lack of insight into illness - Risk Risk: Suicidal, Diminished functioning - Strength & Assets Inventory Strength & Assets Inventory: Family support DSM 5 DX - DSM 5 DSM 5 Diagnosis: 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
--- NOTE | 2018-12-15 11:12 | RAD ---
Date of service: 12/15/2018 HISTORY: Constipation COMPARISON: None available. FINDINGS: BOWEL: There is large amount of stool in the colon. The bowel gas pattern is nonobstructive. No bowel dilatation. BONES: Normal. OTHER FINDINGS: None. IMPRESSION: Constipation. Nonobstructive bowel gas pattern.
--- NOTE | 2018-12-15 11:59 | CP.PCM.CON ---
<Milad Jones - Last Filed: 12/15/18 15:56> History of Present Illness - History of Present Illness History of Present Illness: cc: I want to jump This is a 28 y/o female that presented to ED originally for suicidal ideation with PMH of bipolar disorder. She recently had a fight with her mother who according to her doesn't understand her illness, afterwards she took a st roll outside until she decided to go to the ED. In ED she was combative, which is why pt was admitted to [facility]. On the floor she was responding appropriately, was coherent, and had clear thoughts. She got into an argument with the psychiatrist because they recommended that she stay the week, but she settled to stay for two days. Medicine was consulted after a [employer] TECH[employer]ICAL DEVELOPER was called due to the pt collapsing on to the floor. Pt was difficult to arouse but after several minutes she started responding to stimuli and answering questions. Pt was recently admitted to [facility] from 11/04/18-11/09/18, secondary to attempting suicide by ODing on Valproic Acid. PMH: Bipolar disorder, depression PSH: Extraction of Product of conception Meds: Ziprasidone, Citalopram, Divalproex Sodium, Hydroxyzine HCL, Sertraline, Escitalopram, Famotidine, Quetiapine, Magnesium citrate Review of Systems - Constitutional Constitutional: Fatigue, Headache - EENT Eyes: absent: Blurred Vision, Change in Vision Nose/Mouth/Throat: absent: Neck Pain - Musculoskeletal Musculoskeletal: absent: Arthralgias, Muscle Weakness, Myalgias, Neck Pain, Numbness, Stiffness - Neurological Neurological: Headaches, Syncope. absent: Convulsions - Psychiatric Psychiatric: Depression, Suicidal Ideation Past Patient History - Past Social History Smoking Status: Never Smoked - CARDIAC Hx Hypertension: No - PULMONARY Hx Tuberculosis: No - NEUROLOGICAL Hx Seizures: No - HEENT Hx HEENT Problems: No - RENAL Hx Chronic Kidney Disease: No Hx Kidney Stones: No - ENDOCRINE/METABOLIC Hx Endocrine Disorders: No - HEMATOLOGICAL/ONCOLOGICAL Hx Human Immunodeficiency Virus (HIV): No - INTEGUMENTARY Hx Dermatological Problems: No - MUSCULOSKELETAL/RHEUMATOLOGICAL Hx Musculoskeletal Disorders: No - GASTROINTESTINAL Hx Gastrointestinal Disorders: No - GENITOURINARY/GYNECOLOGICAL Hx Sexually Transmitted Disorders: No - PSYCHIATRIC Hx Bipolar Disorder: Yes Hx Depression: Yes Hx Substance Use: No - SURGICAL HISTORY Hx Surgeries: Yes Hx Section: Yes (X2) - ANESTHESIA Hx Anesthesia: Yes Meds Allergies/Adverse Reactions: Allergies Allergy/AdvReac Type Severity Reaction Status Date / Time No Known Allergies Allergy Verified 12/15/18 03:03 - Medications Medications: Current Medications Clonazepam (Klonopin) 1 mg PO TID [facility] Last Admin: 12/15/18 10:30 Dose: 1 mg Hydroxyzine HCl (Atarax) 25 mg PO Q6 PRN PRN Reason: Agitation Influenza Virus Vaccine (Flucelvax Quad [id number] Syr) 60 mcg IM .ONCE ONE Stop: 12/17/18 10:01 Lorazepam (Ativan) 1 mg PO Q6 PRN PRN Reason: Anxiety Oxcarbazepine (Trileptal) 150 mg PO BID [facility] Last Admin: 12/15/18 10:30 Dose: 150 mg Pneumococcal Polyvalent Vaccine (Pneumovax 23 Vaccine) 0.5 ml IM .ONCE ONE Stop: 12/17/18 10:31 Quetiapine Fumarate (Seroquel) 100 mg PO [facility] Physical Exam - Constitutional Appears: Agitated, Confused - Head Exam Head Exam: ATRAUMATIC, NORMAL INSPECTION - Eye Exam Eye Exam: EOMI, Normal appearance Pupil Exam: NORMAL ACCOMODATION, PERRL - ENT Exam ENT Exam: Mucous Membranes Moist, Normal Exam - Neck Exam Neck exam: Positive for: Full Rom. Negative for: Thyromegaly - Respiratory Exam Respiratory Exam: Clear to Auscultation Bilateral, NORMAL BREATHING PATTERN. absent: Rales, Wheezes - Cardiovascular Exam Cardiovascular Exam: RRR, +S1, +S2 - GI/Abdominal Exam GI & Abdominal Exam: absent: Distended, Rigid, Tenderness - Extremities Exam Extremities exam: Positive for: full ROM, normal inspection, pedal pulses present. Negative for: pedal edema - Back Exam Back exam: NORMAL INSPECTION. absent: tenderness - Neurological Exam Neurological exam: CN II-XII Intact, Oriented x3 Additional comments: Pt appears to be simulating her syncope, resists eye opening at times, during episodes of paralysis, pt opens one eye to see reactions of people observing her. Pt obeys commands inconsistently. malingering features Results - Vital Signs Recent Vital Signs: Last Vital Signs Temp 98.9 F 12/15/18 02:54 Pulse 80 02/19/19 04:36 Resp 14 12/15/18 04:36 BP 124/84 12/15/18 04:36 Pulse Ox 98 12/15/18 06:21 - Labs Result Diagrams: 12/15/18 03:18 12/15/18 03:18 Labs: Laboratory Results - last 24 hr 12/15/18 12/15/18 12/15/18 03:18 03:18 03:18 WBC 11.9 H RBC 4.40 Hgb 10.0 L Hct 32.7 L MCV 74.2 L MCH 22.8 L MCHC 30.7 L RDW 16.2 H Plt Count 506 H MPV 8.0 Neut % (Auto) 75.5 H Lymph % (Auto) 18.0 L [place] % (Auto) 5.7 Eos % (Auto) 0.2 Baso % (Auto) 0.6 Neut # (Auto) 9.0 H Lymph # (Auto) 2.1 [place] # (Auto) 0.7 Eos # (Auto) 0.0 Baso # (Auto) 0.1 Sodium 136 Potassium 3.6 Chloride 100 Carbon Dioxide 30 Anion Gap 11 BUN 8 Creatinine 0.6 L Est GFR ( Amer) > 60 Est GFR (Non-Af Amer) > 60 POC Glucose (mg/dL) Random Glucose 80 Calcium 9.3 Total Bilirubin 0.3 AST 30 ALT 23 Alkaline Phosphatase 78 Total Protein 7.7 Albumin 4.6 Globulin 3.1 Albumin/Globulin Ratio 1.5 Urine Color Urine Clarity Urine pH Ur Specific [place] Urine Protein Urine Glucose (UA) Urine Ketones Urine Blood Urine Nitrate Urine Bilirubin Urine Urobilinogen Ur Leukocyte Esterase Urine WBC (Auto) Urine RBC (Auto) Ur Squamous Epith Cells Urine HCG, Qual Salicylates Urine Opiates Screen Negative Urine Methadone Screen Negative Acetaminophen Ur Barbiturates Screen Negative Ur Phencyclidine Scrn Negative Ur Amphetamines Screen Negative U Benzodiazepines Scrn Negative U Oth Cocaine Metabols Negative U Cannabinoids Screen Negative Alcohol, Quantitative < 10 12/15/18 12/15/18 12/15/18 03:18 03:18 03:18 WBC RBC Hgb Hct MCV MCH MCHC RDW Plt Count MPV Neut % (Auto) Lymph % (Auto) [place] % (Auto) Eos % (Auto) Baso % (Auto) Neut # (Auto) Lymph # (Auto) [place] # (Auto) Eos # (Auto) Baso # (Auto) Sodium Potassium Chloride Carbon Dioxide Anion Gap BUN Creatinine Est GFR ( Amer) Est GFR (Non-Af Amer) POC Glucose (mg/dL) Random Glucose Calcium Total Bilirubin AST ALT Alkaline Phosphatase Total Protein Albumin Globulin Albumin/Globulin Ratio Urine Color Yellow Urine Clarity Hazy Urine pH 6.0 Ur Specific [place] 1.009 Urine Protein Negative Urine Glucose (UA) Normal Urine Ketones Trace Urine Blood Negative Urine Nitrate Negative Urine Bilirubin Negative Urine Urobilinogen Normal Ur Leukocyte Esterase Neg Urine WBC (Auto) 1 Urine RBC (Auto) < 1 Ur Squamous Epith Cells 3 Urine HCG, Qual Negative Salicylates < 1.0 Urine Opiates Screen Urine Methadone Screen Acetaminophen < 10.0 L Ur Barbiturates Screen Ur Phencyclidine Scrn Ur Amphetamines Screen U Benzodiazepines Scrn U Oth Cocaine Metabols U Cannabinoids Screen Alcohol, Quantitative 12/15/18 11:00 WBC RBC Hgb Hct MCV MCH MCHC RDW Plt Count MPV Neut % (Auto) Lymph % (Auto) [place] % (Auto) Eos % (Auto) Baso % (Auto) Neut # (Auto) Lymph # (Auto) [place] # (Auto) Eos # (Auto) Baso # (Auto) Sodium Potassium Chloride Carbon Dioxide Anion Gap BUN Creatinine Est GFR ( Amer) Est GFR (Non-Af Amer) POC Glucose (mg/dL) 92 Random Glucose Calcium Total Bilirubin AST ALT Alkaline Phosphatase Total Protein Albumin Globulin Albumin/Globulin Ratio Urine Color Urine Clarity Urine pH Ur Specific [place] Urine Protein Urine Glucose (UA) Urine Ketones Urine Blood Urine Nitrate Urine Bilirubin Urine Urobilinogen Ur Leukocyte Esterase Urine WBC (Auto) Urine RBC (Auto) Ur Squamous Epith Cells Urine HCG, Qual Salicylates Urine Opiates Screen Urine Methadone Screen Acetaminophen Ur Barbiturates Screen Ur Phencyclidine Scrn Ur Amphetamines Screen U Benzodiazepines Scrn U Oth Cocaine Metabols U Cannabinoids Screen Alcohol, Quantitative Assessment & Plan - Assessment and Plan (Free Text) Assessment: 28F psych admission for suicidal ideation, [employer] TE[employer] DEVELOPER called, medicine consulted for syncope Plan: Syncope -inconsistent physical exam -malingering suspicion -CT head w/o contrast: f/u results -EEG: f/u results -consult placed with medical team -vitals and sugar taken: wnl -repeat urine drug screen -1:1 obs -Consider neuro consult Depression w/ Suicidal features -continue with psychiatric plan -continue with current psych medications -Pt is to have 1:! observation -pastoral care PPx: -HHD -Activity as tolerated -1:1 obs <Aaron Dejesus - Last Filed: 12/15/18 16:31> Meds - Medications Medications: Current Medications Clonazepam (Klonopin) 1 mg PO TID [facility] Last Admin: 12/15/18 14:54 Dose: 1 mg Hydroxyzine HCl (Atarax) 25 mg PO Q6 PRN PRN Reason: Agitation Influenza Virus Vaccine (Flucelvax Quad [id number] Syr) 60 mcg IM .ONCE ONE Stop: 12/17/18 10:01 Lorazepam (Ativan) 1 mg PO Q6 PRN PRN Reason: Anxiety Oxcarbazepine (Trileptal) 150 mg PO BID [facility] Last Admin: 12/15/18 10:30 Dose: 150 mg Pneumococcal Polyvalent Vaccine (Pneumovax 23 Vaccine) 0.5 ml IM .ONCE ONE Stop: 12/17/18 10:31 Quetiapine Fumarate (Seroquel) 100 mg PO [facility] Results - Vital Signs Recent Vital Signs: Last Vital Signs Temp 98.9 F 12/15/18 02:54 Pulse 80 12/15/18 04:36 Resp 14 12/15/18 04:36 BP 124/84 12/15/18 04:36 Pulse Ox 98 12/15/18 06:21 - Labs Result Diagrams: 12/15/18 03:18 12/15/18 03:18 Labs: Laboratory Results - last 24 hr 12/15/18 12/15/18 12/15/18 03:18 03:18 03:18 WBC 11.9 H RBC 4.40 Hgb 10.0 L Hct 32.7 L MCV 74.2 L MCH 22.8 L MCHC 30.7 L RDW 16.2 H Plt Count 506 H MPV 8.0 Neut % (Auto) 75.5 H Lymph % (Auto) 18.0 L [place] % (Auto) 5.7 Eos % (Auto) 0.2 Baso % (Auto) 0.6 Neut # (Auto) 9.0 H Lymph # (Auto) 2.1 [place] # (Auto) 0.7 Eos # (Auto) 0.0 Baso # (Auto) 0.1 Sodium 136 Potassium 3.6 Chloride 100 Carbon Dioxide 30 Anion Gap 11 BUN 8 Creatinine 0.6 L Est GFR ( Amer) > 60 Est GFR (Non-Af Amer) > 60 POC Glucose (mg/dL) Random Glucose 80 Calcium 9.3 Total Bilirubin 0.3 AST 30 ALT 23 Alkaline Phosphatase 78 Total Protein 7.7 Albumin 4.6 Globulin 3.1 Albumin/Globulin Ratio 1.5 Urine Color Urine Clarity Urine pH Ur Specific [place] Urine Protein Urine Glucose (UA) Urine Ketones Urine Blood Urine Nitrate Urine Bilirubin Urine Urobilinogen Ur Leukocyte Esterase Urine WBC (Auto) Urine RBC (Auto) Ur Squamous Epith Cells Urine HCG, Qual Salicylates Urine Opiates Screen Negative Urine Methadone Screen Negative Acetaminophen Ur Barbiturates Screen Negative Ur Phencyclidine Scrn Negative Ur Amphetamines Screen Negative U Benzodiazepines Scrn Negative U Oth Cocaine Metabols Negative U Cannabinoids Screen Negative Alcohol, Quantitative < 10 12/15/18 12/15/18 12/15/18 03:18 03:18 03:18 WBC RBC Hgb Hct MCV MCH MCHC RDW Plt Count MPV Neut % (Auto) Lymph % (Auto) [place] % (Auto) Eos % (Auto) Baso % (Auto) Neut # (Auto) Lymph # (Auto) [place] # (Auto) Eos # (Auto) Baso # (Auto) Sodium Potassium Chloride Carbon Dioxide Anion Gap BUN Creatinine Est GFR ( Amer) Est GFR (Non-Af Amer) POC Glucose (mg/dL) Random Glucose Calcium Total Bilirubin AST ALT Alkaline Phosphatase Total Protein Albumin Globulin Albumin/Globulin Ratio Urine Color Yellow Urine Clarity Hazy Urine pH 6.0 Ur Specific [place] 1.009 Urine Protein Negative Urine Glucose (UA) Normal Urine Ketones Trace Urine Blood Negative Urine Nitrate Negative Urine Bilirubin Negative Urine Urobilinogen Normal Ur Leukocyte Esterase Neg Urine WBC (Auto) 1 Urine RBC (Auto) < 1 Ur Squamous Epith Cells 3 Urine HCG, Qual Negative Salicylates < 1.0 Urine Opiates Screen Urine Methadone Screen Acetaminophen < 10.0 L Ur Barbiturates Screen Ur Phencyclidine Scrn Ur Amphetamines Screen U Benzodiazepines Scrn U Oth Cocaine Metabols U Cannabinoids Screen Alcohol, Quantitative 12/15/18 11:00 WBC RBC Hgb Hct MCV MCH MCHC RDW Plt Count MPV Neut % (Auto) Lymph % (Auto) [place] % (Auto) Eos % (Auto) Baso % (Auto) Neut # (Auto) Lymph # (Auto) [place] # (Auto) Eos # (Auto) Baso # (Auto) Sodium Potassium Chloride Carbon Dioxide Anion Gap BUN Creatinine Est GFR ( Amer) Est GFR (Non-Af Amer) POC Glucose (mg/dL) 92 Random Glucose Calcium Total Bilirubin AST ALT Alkaline Phosphatase Total Protein Albumin Globulin Albumin/Globulin Ratio Urine Color Urine Clarity Urine pH Ur Specific [place] Urine Protein Urine Glucose (UA) Urine Ketones Urine Blood Urine Nitrate Urine Bilirubin Urine Urobilinogen Ur Leukocyte Esterase Urine WBC (Auto) Urine RBC (Auto) Ur Squamous Epith Cells Urine HCG, Qual Salicylates Urine Opiates Screen Urine Methadone Screen Acetaminophen Ur Barbiturates Screen Ur Phencyclidine Scrn Ur Amphetamines Screen U Benzodiazepines Scrn U Oth Cocaine Metabols U Cannabinoids Screen Alcohol, Quantitative Attending/Attestation - Attestation I have personally seen and examined this patient.: Yes I have fully participated in the care of the patient.: Yes I have reviewed all pertinent clinical information: Yes Notes (Text): Patient seen and examined with the residents during [employer], agree with above As per nursing staff, patient finished a phone call and noted to casually lower to the ground, she did NOT syncopize as per the RN who witnessed the event and certainly did not hit her head. Nursing staff also stated the patient did not want to be in the Psych/Behavioral Health gerard but was admitted for possible suicidal ideation. Patient with no seizure like activity (but has a h/o seizures as per history), no focal deficits. Suspicion for malingering high, will keep her under 1:1 observation in the Psych gerard. Follow up on CTH and EEG for any acute pathology. Rest of care as per Behavioral Health.
--- NOTE | 2018-12-15 12:56 | CP.PCM.PN ---
Subjective - Date & Time of Evaluation Date of Evaluation: 12/15/18 Time of Evaluation: 11:30 - Subjective Subjective: Progress note. Rapid response note. Rapid response called am of 12/15/2018. Pt is a 28 yo female with hx of bipolar, suicide attempt, psych hospitalization. Rapid response called for syncopal event. Patient was acting, behaving normally and then approached nurses station and gradually began to lie on floor and then passed out per nursing. Patient did not hit head. When medical team arrived, patient began to wake up and was moved to bed. VSS. Objective - Vital Signs/Intake and Output Vital Signs (last 24 hours): Temp Pulse Resp BP Pulse Ox 98.9 F 80 14 124/84 98 12/15/18 02:54 12/15/18 04:36 12/15/18 04:36 12/15/18 04:36 12/15/18 06:21 - Medications Medications: Current Medications Clonazepam (Klonopin) 1 mg PO TID [facility] Last Admin: 12/15/18 10:30 Dose: 1 mg Hydroxyzine HCl (Atarax) 25 mg PO Q6 PRN PRN Reason: Agitation Influenza Virus Vaccine (Flucelvax Quad [id number] Syr) 60 mcg IM .ONCE ONE Stop: 12/17/18 10:01 Lorazepam (Ativan) 1 mg PO Q6 PRN PRN Reason: Anxiety Oxcarbazepine (Trileptal) 150 mg PO BID [facility] Last Admin: 12/15/18 10:30 Dose: 150 mg Pneumococcal Polyvalent Vaccine (Pneumovax 23 Vaccine) 0.5 ml IM .ONCE ONE Stop: 12/17/18 10:31 Quetiapine Fumarate (Seroquel) 100 mg PO [facility] - Labs Labs: 12/15/18 03:18 12/15/18 03:18 - Constitutional Appears: Non-toxic, No Acute Distress - Head Exam Head Exam: ATRAUMATIC, NORMAL INSPECTION, NORMOCEPHALIC - Eye Exam Eye Exam: EOMI - ENT Exam ENT Exam: Mucous Membranes Moist - Neck Exam Neck Exam: Full ROM, Normal Inspection - Respiratory Exam Respiratory Exam: NORMAL BREATHING PATTERN. absent: Respiratory Distress - Cardiovascular Exam Cardiovascular Exam: +S1, +S2 - GI/Abdominal Exam GI & Abdominal Exam: Soft, Normal Bowel Sounds. absent: Tenderness - Extremities Exam Extremities Exam: Full ROM, Normal Inspection - Neurological Exam Neurological Exam: Alert, Awake, CN II-XII Intact, Oriented x3 - Psychiatric Exam Psychiatric exam: Flat Affect - Skin Skin Exam: Dry, Intact, Normal Color, Warm Assessment and Plan - Assessment and Plan (Free Text) Assessment: -Rapid response -consult placed with medical team -vitals and sugar taken -repeat urine drug screen -1:1 -may need EEG and neuro consult -please see consult note.
--- NOTE | 2018-12-15 13:37 | CT ---
Date of service: 12/15/2018 PROCEDURE: CT HEAD WITHOUT CONTRAST. HISTORY: syncope, possible head trauma COMPARISON: Noncontrast head CT performed 02/04/17 TECHNIQUE: Axial computed tomography images were obtained through the head/brain without intravenous contrast. Radiation dose: Total exam DLP = 1015.58 mGy-cm. This CT exam was performed using one or more of the following dose reduction techniques: Automated exposure control, adjustment of the mA and/or kV according to patient size, and/or use of iterative reconstruction technique. FINDINGS: HEMORRHAGE: No intracranial hemorrhage. BRAIN: No mass effect or edema. No atrophy or chronic microvascular ischemic changes. VENTRICLES: No hydrocephalus. CALVARIUM: Unremarkable. PARANASAL SINUSES: Unremarkable as visualized. No significant inflammatory changes. MASTOID AIR CELLS: Unremarkable as visualized. No inflammatory changes. OTHER FINDINGS: None. IMPRESSION: No acute intracranial pathology identified.
[2018-12-16 06:57] VITALS: RESP 20
--- NOTE | 2018-12-16 07:47 | CP.PCM.PN ---
<Cleve Raymond - Last Filed: 12/16/18 15:02> Subjective - Date & Time of Evaluation Date of Evaluation: 12/16/18 Time of Evaluation: 07:47 - Subjective Subjective: PGY-1 Medicine Progress Note for Dr. Dejesus Patient seen and examined by nursing station this AM with 1:1. Pt's mood was irritable, repeatedly saying she wants to go home today. Required constant redirecting as speech was tangential. Denies any dizziness, lightheadedness, headaches, changes in vision, nausea/vomiting/diarrhea/constipation. No new syncopal episodes per nursing. Objective - Vital Signs/Intake and Output Vital Signs (last 24 hours): Temp Pulse Resp BP Pulse Ox 98.3 F 118 H 20 109/72 100 12/16/18 06:00 12/16/18 06:00 12/16/18 06:00 12/16/18 06:00 12/16/18 06:00 - Medications Medications: Current Medications Clonazepam (Klonopin) 1 mg PO TID [facility] Last Admin: 12/15/18 20:22 Dose: 1 mg Hydroxyzine HCl (Atarax) 25 mg PO Q6 PRN PRN Reason: Agitation Last Admin: 12/15/18 20:22 Dose: 25 mg Influenza Virus Vaccine (Flucelvax Quad [id number] Syr) 60 mcg IM .ONCE ONE Stop: 12/17/18 10:01 Lorazepam (Ativan) 1 mg PO Q6 PRN PRN Reason: Anxiety Oxcarbazepine (Trileptal) 300 mg PO BID [facility] Pneumococcal Polyvalent Vaccine (Pneumovax 23 Vaccine) 0.5 ml IM .ONCE ONE Stop: 12/17/18 10:31 Quetiapine Fumarate (Seroquel) 100 mg PO HS [facility] Last Admin: 12/15/18 22:12 Dose: 100 mg - Labs Labs: 12/15/18 03:18 12/15/18 03:18 - Constitutional Appears: Non-toxic, No Acute Distress - Head Exam Head Exam: ATRAUMATIC, NORMAL INSPECTION, NORMOCEPHALIC - Eye Exam Eye Exam: EOMI, Normal appearance Pupil Exam: NORMAL ACCOMODATION - ENT Exam ENT Exam: Mucous Membranes Moist, Normal Exam - Neck Exam Neck Exam: Full ROM, Normal Inspection - Respiratory Exam Respiratory Exam: Clear to Ausculation Bilateral, NORMAL BREATHING PATTERN. absent: Accessory Muscle Use, Rales, Rhonchi, Wheezes, Respiratory Distress, Stridor - Cardiovascular Exam Cardiovascular Exam: REGULAR RHYTHM, +S1, +S2 - GI/Abdominal Exam GI & Abdominal Exam: Soft, Normal Bowel Sounds. absent: Distended, Firm, Guarding, Rigid, Tenderness, Rebound - Extremities Exam Extremities Exam: Full ROM, Normal Capillary Refill, Normal Inspection - Back Exam Back Exam: NORMAL INSPECTION - Neurological Exam Neurological Exam: Alert, Awake, CN II-XII Intact, Normal Gait, Oriented x3 - Psychiatric Exam Psychiatric exam: Manic - Skin Skin Exam: Dry, Intact, Normal Color, Warm Assessment and Plan - Assessment and Plan (Free Text) Assessment: 28 year old female with pmhx of bipolar depression, previous suicide attempt, hx seizure disorder (?) admitted for suicidal ideation. Medicine consulted for syncopal episode. Plan: Syncope -[employer]NICIAN called yesterday for syncopal episode -per nursing staff, patient finished a phone call and noted to casually lower to the ground -did not syncopize per nursing, no head trauma -Nursing staff also stated the patient did not want to be in the Psych/Behavioral Health gerard but was admitted for possible suicidal ideation -high suspicion for malingering -pt on 1:1 -CT head: no acute intracranial pathology -f/u bedside EEG report, will further evaluate if abnormal -vitals stable, labs wnl, repeat UDS negative -Rest of care as per Psychiatry/Behavior Health -Disposition: Patient is currently medically stable, will further evaluate if EE G results return abnormal. Otherwise, we will sign off on case. Thank you for this interesting consult. Case discussed with Dr. Oleg Raymond DO, PGY-1 <Aaron Dejesus - Last Filed: 12/16/18 16:52> Objective - Vital Signs/Intake and Output Vital Signs (last 24 hours): Temp Pulse Resp BP Pulse Ox 98.3 F 118 H 20 109/72 100 12/16/18 06:00 12/16/18 06:00 12/16/18 06:00 12/16/18 06:00 12/16/18 06:00 - Medications Medications: Current Medications Diphenhydramine HCl (Benadryl) 50 mg IM Q6 PRN PRN Reason: Agitation Last Admin: 12/16/18 14:36 Dose: 50 mg Haloperidol (Haldol) 5 mg PO BID [facility] Last Admin: 12/16/18 14:00 Dose: 5 mg Haloperidol Lactate (Haldol) 5 mg IM Q6 PRN PRN Reason: Agitation Last Admin: 12/16/18 14:36 Dose: 5 mg Hydroxyzine HCl (Atarax) 25 mg PO Q6 PRN PRN Reason: Agitation Last Admin: 12/15/18 20:22 Dose: 25 mg Influenza Virus Vaccine (Flucelvax Quad [id number] Syr) 60 mcg IM .ONCE ONE Stop: 12/17/18 10:01 Lorazepam (Ativan) 1 mg PO Q6 PRN PRN Reason: Anxiety Last Admin: 12/16/18 14:00 Dose: 1 mg Lorazepam (Ativan) 1 mg IM Q6H PRN PRN Reason: Anxiety Oxcarbazepine (Trileptal) 300 mg PO BID [facility] Last Admin: 12/16/18 10:07 Dose: 300 mg Pneumococcal Polyvalent Vaccine (Pneumovax 23 Vaccine) 0.5 ml IM .ONCE ONE Stop: 12/17/18 10:31 Quetiapine Fumarate (Seroquel) 100 mg PO HS [facility] Last Admin: 12/15/18 22:12 Dose: 100 mg - Labs Labs: 12/15/18 03:18 12/15/18 03:18 Attending/Attestation - Attestation I have personally seen and examined this patient.: Yes I have fully participated in the care of the patient.: Yes I have reviewed all pertinent clinical information, including history, physical exam and plan: Yes
--- NOTE | 2018-12-16 10:13 | PCM.PYCHPN ---
Psychiatric Progress Note - Psychiatric Progress Note Patient seen today, length of contact: 16 min Patient Chief Complaint: I want to go home.' Problems Identified/Issues Discussed: Patient was seen and evaluated, chart reviewed and discussed the staff. Today patient became increasingly disorganized and internally preoccupied. She was very paranoid, delusional and manic. As per the staff, she is delusional that she is going to a green party and she is taking shower over and over since morning. She is having a 48-hour note and states that today is a son's birthday she had that she has not seen her kids for more than 30 days because she was on the streets. Later on patient became increasingly combative, aggressive and agitated. Patient was given oral Haldol and Ativan. She is taking medication but denies any side effects Supportive therapy was given Note: Around 2:30 PM patient became increasingly disorganized and delusional. She started yelling and cursing at the staff and demanded to leave AMA. She started taking her clothes off and started hitting herself and started punching the floor. She was given Haldol and Benadryl IM but she remained aggressive and agitated. She started taking shower saying the needles are making her dirty. Reversing [employer] and the staff met her and try to convince the she became so paranoid and manic that she did not calm down and remained aggressive towards herself. Eventually security was called and patient was put on four-point restraints Medication Change: Yes Medical Record Reviewed: Yes Mental Status Examination - Cognitive Function Orientation: Person, Place, Situation, Time Memory: Intact Attention: Poor Concentration: Poor Association: Loose Fund of Knowledge: Poor - Mood Mood: Anxious - Affect Affect: Broad - Speech Speech: Loud, Pressured - Formal Thought Process Formal Thought Process: Delusions, Paranoia, Loosening of associations, Flight of ideas, Circumstantial - Suicidal Ideation Suicidal Ideation: No - Homicidal Ideation Homicidal Ideation: No Goal/Treatment Plan - Goal/Treatment Plan Need for Continued Stay: Remain at risks for inpatient hospitalization Progress Toward Problem(s) and Goals/Treatment Plan: Bipolar disorder mixed severe with psychotic features CBT Psychoeducation Supportive therapy and group therapy and milieu therapy Trileptal for mood Seroquel for paranoia Klonopin for severe anxiety Ativan for anxiety Haldol for psychosis Haldol as needed oral/IM for psychosis Benadryl PRN/IM for agitation Ativan as needed oral/IM for agitation Pt to be screened by the [facility] [place] - Smoking Cessation Smoking Cessation Initiated: No
[2018-12-16] MEDS ORDERED: DiphenhydrAMINE 50 mg/ml Inj IM PRN (13:38)
[2018-12-17] MEDS ORDERED: Influenza Vaccine 60 mcg/0.5 mL SYR (4YR UP) IM ONE (10:00)
[2018-12-17] MEDS ORDERED: Pneumococcal 23-Valent Vaccine IM ONE (10:30)
--- NOTE | 2018-12-17 11:22 | PCM.PYCHPN ---
Psychiatric Progress Note - Psychiatric Progress Note Patient seen today, length of contact: 16 min Patient Chief Complaint: I want to go home.' Problems Identified/Issues Discussed: Patient was seen and evaluated, chart reviewed and discussed the staff. As per the staff, she remained delusional that she is going to a green party and she is taking shower over and over. She remained disorganized and internally preoccupied. Pt was screened and accepted [place] [facility] [place] She is still paranoid, delusional and manic. She is taking medication but denies any side effects Supportive therapy was given Medication Change: Yes Medical Record Reviewed: Yes Mental Status Examination - Cognitive Function Orientation: Person, Place, Situation, Time Memory: Intact Attention: Poor Concentration: Poor Association: Loose Fund of Knowledge: Poor - Mood Mood: Anxious - Affect Affect: Broad - Speech Speech: Loud, Pressured - Formal Thought Process Formal Thought Process: Delusions, Paranoia, Loosening of associations, Flight of ideas, Circumstantial - Suicidal Ideation Suicidal Ideation: No - Homicidal Ideation Homicidal Ideation: No Goal/Treatment Plan - Goal/Treatment Plan Need for Continued Stay: Remain at risks for inpatient hospitalization Progress Toward Problem(s) and Goals/Treatment Plan: Bipolar disorder mixed severe with psychotic features CBT Psychoeducation Supportive therapy and group therapy and milieu therapy Trileptal for mood Seroquel for paranoia dc Klonopin for severe anxiety Ativan for anxiety Haldol for psychosis Haldol as needed oral/IM for psychosis Benadryl PRN/IM for agitation Ativan as needed oral/IM for agitation Pt to be screened by the [facility] [place] - Smoking Cessation Smoking Cessation Initiated: No
[2018-12-18 06:01] VITALS: TEMP 98.3; O2SAT 96
--- NOTE | 2018-12-18 08:39 | RAD ---
Date of service: 12/18/2018 HISTORY: for transfer COMPARISON: 07/27/2018. FINDINGS: LUNGS: The lungs are well inflated and clear. PLEURA: No pleural effusions or pneumothorax. CARDIOVASCULAR: The heart is normal in size. No aortic atherosclerotic calcifications present. OSSEOUS STRUCTURES: Within normal limits for the patient's age. VISUALIZED UPPER ABDOMEN: Normal. OTHER FINDINGS: None. IMPRESSION: No active pulmonary disease.
[2018-12-18] MEDS ORDERED: Magnesium Hydroxide Susp 30 ml UD PO ONE (10:15)
[2018-12-18] MEDS ORDERED: Magnesium Hydroxide Susp 30 ml UD PO PRN (11:29)
--- NOTE | 2018-12-18 13:23 | PCM.PYCHPN ---
Psychiatric Progress Note - Psychiatric Progress Note Patient seen today, length of contact: 16 min Patient Chief Complaint: I want to go home.' Problems Identified/Issues Discussed: Patient was seen and evaluated, chart reviewed and discussed the staff. As per the staff, she remained remained disorganized and internally preoccupied. Pt is screened and accepted by the [facility] [place]. She is still paranoid, delusional and manic. She started taking selective medication but denies any side effects Supportive therapy was given Medication Change: Yes Medical Record Reviewed: Yes Mental Status Examination - Cognitive Function Orientation: Person, Place, Situation, Time Memory: Intact Attention: Poor Concentration: Poor Association: Loose Fund of Knowledge: Poor - Mood Mood: Anxious - Affect Affect: Broad - Speech Speech: Loud, Pressured - Formal Thought Process Formal Thought Process: Delusions, Paranoia, Loosening of associations, Flight of ideas, Circumstantial - Suicidal Ideation Suicidal Ideation: No - Homicidal Ideation Homicidal Ideation: No Goal/Treatment Plan - Goal/Treatment Plan Need for Continued Stay: Remain at risks for inpatient hospitalization Progress Toward Problem(s) and Goals/Treatment Plan: Bipolar disorder mixed severe with psychotic features CBT Psychoeducation Supportive therapy and group therapy and milieu therapy Trileptal for mood Seroquel for paranoia dc Klonopin for severe anxiety Ativan for anxiety Haldol for psychosis Haldol as needed oral/IM for psychosis Benadryl PRN/IM for agitation Ativan as needed oral/IM for agitation Pt waiting for the bed at [facility] [place].
[2018-12-18 15:42] VITALS: BP 122/83; PULSE 108
== END 2018-12-19 02:45 | disposition short-term general hospital (02) | DRG 430 ==
LOC: C.ER 02:24 → C.5E 04:17
PROVIDERS: ADMIT Psychiatry & Neurology Psychiatry; ATTEND Psychiatry & Neurology Psychiatry
PROC: GZHZZZZ Group Psychotherapy (ICD-10-PCS; principal; 2018-12-15)
PROC: GZ58ZZZ Individual Psychotherapy, Cognitive-Behavioral (ICD-10-PCS; 2018-12-15)
PROC: GZ56ZZZ Individual Psychotherapy, Supportive (ICD-10-PCS; 2018-12-15)
DX: F31.64 Bipolar disorder, current episode mixed, severe, with psychotic features (principal); F41.9 Anxiety disorder, unspecified; G40.909 Epilepsy, unspecified, not intractable, without status epilepticus; R45.851 Suicidal ideations; Z76.5 Malingerer [conscious simulation]; R55 Syncope and collapse